=== PATIENT | male | born 1945 | race Caucasian/White ===

== ENCOUNTER 2016-12-13 16:07 | Inpatient (IN) | payer OTHER, BC ==
[~2016-12-13] VITALS: Ht 175.3 cm; Wt 75.1 kg
[~2016-12-13 16:07] MED LIST: ADVIL,NUPRIN,M200 MG PO; ALLEGRA ALLERG180 MG PO; ALPRAZOLAM0.25 M2 PO; AMLODIPINE BESY10 MG PO; ASPIRIN325 MG PO; BENADRYL ALLERG25 MG PO; FENOFIBRATE145 M1 PO; FLAXSEED OIL; GLIPIZIDE PO; LANTUS 3 M100 UNITS1 SC; LEVOTHYROXINE75 MCG PO; LISINOPRIL20 MG PO; LIVALO4 MG PO; METOPROLOL TART50 MG PO; [UNRECOGNIZED DRUG - OTHER] PO
[2016-12-13 16:58] LABS: HEMATOCRIT 37.3 % (38.0-50.0); MCH 33.4 PG (29.0-34.0); MCHC 34.6 G/DL (30.0-36.0); MCV 96.6 FL (86-99); MEAN PLAT.VOLUME 9.7 uM^3 (9.0-12.4); PLATELET COUNT 257 K/uL (156-360); RBC DIS.WIDTH-CV 15.4 % (11.8-14.6); RBC DIS.WIDTH-SD 54.4 % (39-53); RED BLOOD COUNT 3.86 M/uL (4.00-5.50)
[2016-12-13 17:07] LABS: CHLORIDE 110 mEq/L (99-109); POTASSIUM 3.9 mEq/L (3.7-5.4); SODIUM 144 mEq/L (136-147)
[2016-12-13 17:09] LABS: GLUCOSE 40 mg/dL (70-99)
[2016-12-13 17:11] LABS: ANION GAP 15 MEQ/L (2-14)
[2016-12-13 17:13] LABS: GFR ESTIMATE (CALCULATED) 33 mL/min/
[2016-12-13 17:14] LABS: UREA NITROGEN (BUN) 35 mg/dL (9-23)
[2016-12-13 17:20] LABS: TROP-I INTERPRETATION NEGATIVE; TROPONIN-I 0.19 ng/mL (0.0-0.30)
[2016-12-13 21:30] LABS: POINT-OF-CARE METER ID UU13113702
[2016-12-13 21:56] LABS: INTER. NORMALIZED RATIO 1.2; PROTHROMBIN TIME 12.9 SEC (10.2-12.9)
[2016-12-13 21:58] LABS: PTT 24.7 SEC (25-37)
[2016-12-13] MEDS ORDERED: GLUCOTROL5 MG PO (23:28)
[2016-12-13] MEDS ORDERED: ZYRTEC10 M3 PO (23:28)
[2016-12-13] MEDS ORDERED: OMEGA-3 FLAXS1000 MG PO (23:29)
[2016-12-13] MEDS ORDERED: VENTOLIN HFA18 GM IH (23:30)
[2016-12-13] MEDS ORDERED: SYMBICORT60 INHALAT IH (23:30)
[2016-12-13 23:56] LABS: POINT-OF-CARE METER ID UU13113702
[2016-12-13 23:58] LABS: TROP-I INTERPRETATION NEGATIVE; TROPONIN-I 0.16 ng/mL (0.0-0.30)
[2016-12-14 00:33] VITALS: BP 126/60
[2016-12-14 04:39] VITALS: BP 103/53
[2016-12-14 05:26] LABS: HEMATOCRIT 33.6 % (38.0-50.0); MCH 31.7 PG (29.0-34.0); MCHC 32.1 G/DL (30.0-36.0); MCV 98.5 FL (86-99); MEAN PLAT.VOLUME 9.5 uM^3 (9.0-12.4); PLATELET COUNT 222 K/uL (156-360); RBC DIS.WIDTH-CV 15.4 % (11.8-14.6); RBC DIS.WIDTH-SD 55.6 % (39-53); RED BLOOD COUNT 3.41 M/uL (4.00-5.50); WHITE BLOOD COUNT 6.6 K/uL (4.1-10.2)
[2016-12-14 05:44] LABS: TROP-I INTERPRETATION NEGATIVE; TROPONIN-I 0.15 ng/mL (0.0-0.30)
[2016-12-14 05:51] LABS: ANION GAP 8 MEQ/L (2-14); CHLORIDE 115 MEQ/L (99-109); GFR ESTIMATE (CALCULATED) 40 mL/min/; SAMPLE HEMOLYSIS CHECK 0; SAMPLE ICTERIC CHECK 0; SAMPLE LIPEMIA CHECK 0; SODIUM 147 MEQ/L (136-147); UREA NITROGEN (BUN) 36 mg/dL (9-23)
[2016-12-14 05:52] LABS: GLUCOSE 100 mg/dL (70-99)
[2016-12-14 08:18] VITALS: BP 108/52
[2016-12-14 12:00] VITALS: BP 116/68
[2016-12-14 14:58] LABS: Estimated Average Glucose 174 mg/dL (70-123); HEMOGLOBIN A1c (GLYCOHEMOGLOB) 7.7 % HGB (Below 5.7)
[2016-12-14 15:17] VITALS: BP 133/66
[2016-12-14 19:03] LABS: POINT-OF-CARE METER ID UU13113831
[2016-12-14 20:00] VITALS: BP 126/60
[2016-12-14 21:56] LABS: POINT-OF-CARE METER ID UU13113700
[2016-12-15 00:18] VITALS: BP 134/81
[2016-12-15 04:16] VITALS: BP 133/61
[2016-12-15 07:55] VITALS: BP 141/67
[2016-12-15 08:31] LABS: POINT-OF-CARE METER ID UU13113831
[2016-12-15 14:00] LABS: POINT-OF-CARE METER ID UU13113831
[2016-12-15 14:39] LABS: TROP-I INTERPRETATION INDETERMINATE; TROPONIN-I 0.54 ng/mL (0.0-0.30)
[2016-12-15 16:14] VITALS: BP 143/72; BP 170/78
[2016-12-15 19:39] VITALS: BP 107/69
[2016-12-16] VITALS (9 sets, daily range): BP systolic 121–142; BP diastolic 56–85
[2016-12-16 00:31] LABS: POINT-OF-CARE METER ID UU13113831
[2016-12-16 08:08] LABS: POINT-OF-CARE METER ID UU13113700
[2016-12-16 09:02] LABS: EOSINOPHIL (%) 0 % (0-5); HEMATOCRIT 38.5 % (38.0-50.0); IMMATURE GRANULOCYTE (%) 0.7 % (0.0-0.7); IMMATURE GRANULOCYTE COUNT 0.1 K/uL; INSTRUMENT ABS NEUTROPHIL CT 9.5 K/uL; LYMPHOCYTE COUNT 0.5 K/uL (1.0-2.8); MCH 32.8 PG (29.0-34.0); MCHC 33.2 G/DL (30.0-36.0); MCV 98.7 FL (86-99); MEAN PLAT.VOLUME 9.5 uM^3 (9.0-12.4); MONOCYTE (%) 2.7 % (3-12); MONOCYTE COUNT 0.3 K/uL (0-0.8); NEUTROPHIL (%) 91.5 % (45-76); NEUTROPHIL COUNT 9.5 K/uL (1.8-6.4); PLATELET COUNT 272 K/uL (156-360); RBC DIS.WIDTH-CV 14.7 % (11.8-14.6); RBC DIS.WIDTH-SD 53.4 % (39-53); WHITE BLOOD COUNT 10.4 K/uL (4.1-10.2)
[2016-12-16 09:08] LABS: ALKALINE PHOSPHATASE 31 IU/L (3-129); ANION GAP 11 MEQ/L (2-14); CHLORIDE 109 MEQ/L (99-109); GFR ESTIMATE (CALCULATED) 49 mL/min/; POTASSIUM 4.5 MEQ/L (3.7-5.4); SAMPLE HEMOLYSIS CHECK 0; SAMPLE ICTERIC CHECK 0; SAMPLE LIPEMIA CHECK 0; SODIUM 140 MEQ/L (136-147); TOTAL BILIRUBIN 0.5 MG/DL (0.0-1.0); UREA NITROGEN (BUN) 40 mg/dL (9-23)
[2016-12-16 09:17] LABS: GLUCOSE 211 mg/dL (70-99)
[2016-12-16 09:34] LABS: TROP-I INTERPRETATION POSITIVE; TROPONIN-I 1.08 ng/mL (0.0-0.30)
[2016-12-16 11:30] LABS: ADD MIUA? YES; BILIRUBIN NEGATIVE; BLOOD SMALL; COLOR YELLOW ((YELLOW)); GLUCOSE (STRIP) >=500; KETONES 5; LEUKOCYTES NEGATIVE; NITRITE NEGATIVE; PROTEIN (STRIP) NEGATIVE; SPECIFIC GRAVITY 1.014 (1.000-1.030); UROBILINOGEN 0.2 MG/DL (0.2-1.0)
[2016-12-16 11:35] LABS: BACTERIA NONE SEEN /HPF; EPITHELIAL CELLS NONE SEEN /HPF; MUCUS NONE SEEN /LPF; RED BLOOD CELLS 0-5 /HPF (0-5); UCUL ADDED? NO; WHITE BLOOD CELLS 0-5 /HPF (0-5)
[2016-12-16 12:04] LABS: BASE EXCESS -2.8 mEq/L (-3 to +3); BICARBONATE 20.6 mEq/L (22-26); CARBOXY HGB 0.8 % (0-5); METHEMOGLOBIN 1.2 % (0-1.5); PCO2 31 mm Hg (35-45); PO2 80 mm Hg (80-100); pH 7.43 (7.35-7.45)
[2016-12-16 12:05] LABS: COMMENTS - BLOOD GASES A+C+; FI02 21 %; SITE RR; TOTAL RESP RATE 16 resp/min
[2016-12-16 12:29] LABS: POINT-OF-CARE METER ID UU13113700
[2016-12-16 13:03] LABS: AMPHETAMINES QUANT VALUE 0 NG/ML; BARBITUATES QUANT VALUE 0 NG/ML; BENZODIAZEPINES, URINE SCREEN POSITIVE (200 ng/mL); MARIJUANA QUANT VALUE 0 NG/ML; OPIATES QUANTITATIVE VALUE 0 NG/ML; PHENCYCLIDINE QUANT VALUE 0 NG/ML
[2016-12-16 13:05] LABS: FREE T3 2.7 pg/mL (2.3-4.2)
[2016-12-17 03:43] VITALS: BP 115/70
[2016-12-17 08:10] VITALS: BP 127/85
[2016-12-17 10:56] VITALS: BP 139/93
[2016-12-17 11:16] LABS: POINT-OF-CARE METER ID UU13113831
[2016-12-17 15:36] VITALS: BP 137/92
[2016-12-17 16:37] LABS: POINT-OF-CARE METER ID UU13113831
[2016-12-17 20:00] VITALS: BP 139/81
[2016-12-17 22:08] LABS: POINT-OF-CARE METER ID UU13113700
[2016-12-18 02:46] VITALS: BP 125/82
[2016-12-18 08:33] VITALS: BP 122/72
[2016-12-18 11:40] VITALS: BP 129/75
[2016-12-18 12:26] LABS: POINT-OF-CARE METER ID UU13113831
[2016-12-18 16:02] VITALS: BP 145/97
[2016-12-18 17:34] VITALS: BP 107/62
[2016-12-18 21:06] VITALS: BP 124/66
[2016-12-19 00:34] VITALS: BP 114/55
[2016-12-19 04:34] VITALS: BP 133/65
[2016-12-19 06:26] LABS: MCH 31.2 PG (29.0-34.0); MCHC 32.6 G/DL (30.0-36.0); MCV 95.7 FL (86-99); MEAN PLAT.VOLUME 9.6 uM^3 (9.0-12.4); PLATELET COUNT 342 K/uL (156-360); RBC DIS.WIDTH-SD 49.1 % (39-53); RED BLOOD COUNT 4.39 M/uL (4.00-5.50); WHITE BLOOD COUNT 13.3 K/uL (4.1-10.2)
[2016-12-19 06:49] LABS: ANION GAP 10 MEQ/L (2-14); CHLORIDE 104 MEQ/L (99-109); GFR ESTIMATE (CALCULATED) 49 mL/min/; GLUCOSE 189 mg/dL (70-99); POTASSIUM 4.5 MEQ/L (3.7-5.4); SAMPLE HEMOLYSIS CHECK 0; SAMPLE ICTERIC CHECK 0; SAMPLE LIPEMIA CHECK 0; SODIUM 138 MEQ/L (136-147); UREA NITROGEN (BUN) 40 mg/dL (9-23)
[2016-12-19 08:10] LABS: POINT-OF-CARE METER ID UU13113831
[2016-12-19 08:51] VITALS: BP 117/64
[2016-12-19 11:43] VITALS: BP 105/75
[2016-12-19 12:48] LABS: POINT-OF-CARE METER ID UU13113831
[2016-12-19] MEDS ORDERED: ELIQUIS5 MG PO (13:46)
[2016-12-19] MEDS ORDERED: METOPROLOL SUC100 MG PO (13:46)
[2016-12-19] MEDS ORDERED: DILTIAZEM 24HR120 MG PO (13:46)
== END 2016-12-19 14:59 | disposition home or self-care (01) | DRG 190 ==
LOC: EME 16:07 → EDOF 21:51 → ENRESERV 21:59 → 5WEST 23:53 → ENRESERV 12-14 10:11 → CANRESERV 12-14 10:11 → 5WEST 12-19 14:59
PROVIDERS: Emergency Medicine; Hospitalist; Nurse Practitioner Family; Physician Assistant Medical; Student in an Organized Health Care Education/Training Program
DX: J44.1 Chronic obstructive pulmonary disease with (acute) exacerbation (principal); N17.9 Acute kidney failure, unspecified; I48.1 Persistent atrial fibrillation; F17.200 Nicotine dependence, unspecified, uncomplicated; D64.9 Anemia, unspecified; E03.9 Hypothyroidism, unspecified; E78.5 Hyperlipidemia, unspecified; E11.649 Type 2 diabetes mellitus with hypoglycemia without coma; Z95.1 Presence of aortocoronary bypass graft; Z79.4 Long term (current) use of insulin; N18.9 Chronic kidney disease, unspecified; I12.9 Hypertensive chronic kidney disease with stage 1 through stage 4 chronic kidney disease, or unspecified chronic kidney disease; E11.22 Type 2 diabetes mellitus with diabetic chronic kidney disease; E87.2 Acidosis; I25.110 Atherosclerotic heart disease of native coronary artery with unstable angina pectoris; I25.2 Old myocardial infarction; I71.2 Thoracic aortic aneurysm, without rupture; F20.0 Paranoid schizophrenia; F10.230 Alcohol dependence with withdrawal, uncomplicated; G93.40 Encephalopathy, unspecified; I71.4 Abdominal aortic aneurysm, without rupture
CPT/HCPCS: 36600; 70450; 71020; 71250; 78582; 80048; 80053; 80306 90; 81003; 82140; 82607; 82746; 82803; 82948; 83036; 83880; 84439; 84443; 84481; 84484; 85025; 85027; 85379; 85610; 85730; 90686; 93005; 93306; 94640; 94640 76; 97530 GP; 99202; 99281; 99285; A9540; A9567; G0378; G8978 GP CI; G8979 GP CH; J1630; J1644; J1815; J1940; J2060; J2920; J3486; J7030; J7512